=== PATIENT | female | born 1970 ===

== ENCOUNTER → 2023-06-18 | Outpatient (REF) | payer MEDICARE ==
[2023-06-18 18:39] LABS: URIC ACID 4.6 MG/DL (3.1-7.8)
[2023-06-18 18:41] LABS: C REACTIVE PROTEIN QUANTITATIV < 0.40 MG/DL (<1.0)
== END ==
LOC: M LAB REF 16:20
PROVIDERS: ATTEND Nurse Practitioner Family
DX: M25.50 Pain in unspecified joint (principal)